=== PATIENT | female | born 1970 | race Caucasian/White ===

== ENCOUNTER 2017-03-11 15:35 | Emergency (ER) | payer BC, MEDICAID ==
--- NOTE | 2017-03-11 16:51 | RADIOLOGY REPORT (SQ) ---
EXAM DESCRIPTION: CHEST PA/LAT COMPLETED DATE/TIME: 03/11/2017 4:42 pm REASON FOR STUDY: 19, cough COMPARISON: Two-view chest 12/08/2013, 12/29/2012 EXAM PARAMETERS: NUMBER OF VIEWS: two views TECHNIQUE: Digital Frontal and Lateral radiographic views of the chest acquired. RADIATION DOSE: NA LIMITATIONS: none FINDINGS: LUNGS AND PLEURA: No opacities, masses or pneumothorax. No pleural effusion. MEDIASTINUM AND HILAR STRUCTURES: No masses or contour abnormalities. HEART AND VASCULAR STRUCTURES: Heart normal size. No evidence for failure. BONES: No acute findings. HARDWARE: None in the chest. OTHER: No other significant finding. IMPRESSION: NO SIGNIFICANT RADIOGRAPHIC FINDING IN THE CHEST. TECHNICAL DOCUMENTATION: JOB ID: [id number] [employer]- All Rights Reserved
[2017-03-11] MEDS ORDERED: ASPIRIN 81 MG TABLET, CHEWABLE PO ONE (17:02)
[2017-03-11 17:07] LABS: ABSOLUTE BASOPHILS # (AUTO) 0.1 10^3/uL (0.0-0.2); ABSOLUTE EOSINOPHILS # (AUTO) 0.2 10^3/uL (0.0-0.6); ABSOLUTE LYMPHOCYTES (AUTO) 2.3 10^3/uL (0.5-4.7); ABSOLUTE MONOCYTES (AUTO) 0.7 10^3/uL (0.1-1.4); ABSOLUTE NEUT (AUTO) 4.6 10^3/uL (1.7-8.2); EOSINOPHILS % (AUTO) 1.9 % (0-6); HEMATOCRIT 43.8 % (36.0-47.0); HGB HCT DIFFERENCE 1.2; MEAN CORPUSCULAR HEMOGLOBIN 30.8 pg (27.0-33.4); MEAN CORPUSCULAR HGB CONC 34.2 g/dL (32.0-36.0); MEAN CORPUSCULAR VOLUME 90 fl (80-97); MONOCYTES % (AUTO) 8.6 % (3-13); RED BLOOD COUNT 4.86 10^6/uL (3.72-5.28); RED CELL DISTRIBUTION WIDTH 13.1 % (11.5-14.0); SEGMENTED NEUTROPHILS % (AUTO) 58.5 % (42-78); WHITE BLOOD COUNT 7.8 10^3/uL (4.0-10.5)
--- NOTE | 2017-03-11 17:09 | ER Document Report ---
ED Cardiac - General Chief Complaint: Shortness Of Breath Stated Complaint: HEADACHE,CHEST PRESSURE Time Seen by Provider: 03/11/17 16:27 Information source: Patient Notes: 36-year-old female that presents today stating for the last week she has felt just a little "hazy", and being "weak all over". She states she believes these are secondary to small "blood pressure attacks" that she receives. She states that she has had these for an extended period of time. She states last night she had a "2 second" episode of some chest discomfort to the left anterior chest. She states she had a similar to second episode this morning. The last episode of any chest discomfort was early this morning. She states she has had some intermittent nausea over the last few days. She denies any fevers, vomiting, or cough. She denies any calf pain or leg swelling. She denies any shortness of breath, trips or travel. Patient does state she has a mild frontal headache. She denies any discrete weakness unilaterally to one side or the other. She denies any head trauma, neck pain, or blurry vision. States she has been taking her medications appropriately for blood pressure. Patient does state that she is self tapering her citalopram, tramadol, and gabapentin secondary to her losing her health insurance in the next few weeks. TRAVEL OUTSIDE OF THE [place] IN LAST 30 DAYS: No - HPI Patient complains to provider of: Chest pain Was the onset of pain: Sudden Is the pain a: New problem Chest pain location: Substernal Quality of pain: Other - See above Severity now: None Severity at worst: Mild Pain level currently: 2 Cardiac risk factors: Hypertension, Smoker, + Family history Positive cardiac history: No Associated symptoms: Other - See above Exacerbated by: Denies Relieved by: Nothing Similar symptoms previously: Yes Recently seen / treated by doctor: Yes - Related Data Allergies/Adverse Reactions: Penicillins Allergy (Verified 03/11/17 15:37) Past Medical History - General Information source: Patient - Social History Smoking Status: Unknown if Ever Smoked Cigarette use (# per day): No Chew tobacco use (# tins/day): No Smoking Education Provided: No Family History: Other - Dad with pacemaker in his 50's. - Past Medical History Cardiac Medical History: Reports: Hx Hypercholesterolemia, Hx Hypertension Psychiatric Medical History: Reports: Hx Depression - Immunizations Hx Diphtheria, Pertussis, Tetanus Vaccination: Yes Review of Systems - Review of Systems Constitutional: denies: Fever EENT: denies: Eye discharge, Nose congestion, Nose discharge Cardiovascular: Lightheaded. denies: Palpitations, Heart racing, Edema Respiratory: denies: Short of breath Gastrointestinal: denies: Abdominal pain, Vomiting Genitourinary: denies: Dysuria Musculoskeletal: denies: Leg swelling Skin: Other - no hives. denies: Rash Neurological/Psychological: Other - no slurred speech -: Yes All other systems reviewed and negative Physical Exam - Vital signs Vitals: Temp Pulse Resp BP Pulse Ox 99.1 F 86 20 149/100 H 97 03/11/17 15:41 03/11/17 15:41 03/11/17 15:41 03/11/17 15:41 03/11/17 15:41 Notes: Reviewed vital signs and nursing note as charted by RN. CONSTITUTIONAL: Alert and oriented and responds appropriately to questions. Well -appearing; well-nourished HEAD: Normocephalic; atraumatic EYES: PERRL; full extraocular range of motion ENT: Normal nose; no rhinorrhea; moist mucous membranes; pharynx without lesions noted NECK: Supple without meningismus; no carotid bruits; non-tender; no cervical lymphadenopathy, no masses CARD: Regular rate and rhythm; no murmurs, no clicks, no rubs, no gallops; symmetric distal pulses RESP: Normal chest excursion without splinting or tachypnea; breath sounds clear and equal bilaterally ABD/GI: Normal bowel sounds; non-distended; soft, non-tender BACK: The back appears normal and is non-tender to palpation EXT: Normal ROM in all joints; non-tender to palpation, no edema SKIN: No acute lesions noted NEURO: CN II through XII are intact. Patient has 5 out of 5 bilateral upper and lower extremity strength with sensation intact to light touch PSYCH: The patient's mood and manner are appropriate. Grooming and personal hygiene are appropriate. Course - Re-evaluation Re-evalutation: 03/11/17 17:09 EKG shows a heart rate of 80, normal sinus rhythm, minimally incomplete right bundle branch block with possibly left anterior fascicular block. No obvious ST elevation, depression, or flattening. Old EKG from 2014 has been compared showing no appreciable change. Given the above history and physical examination, heart rate in the 70s, 100% room air oxygenation, no recent trips or travel, no calf pain or leg swelling, no radiation to the back, pain lasting 2 seconds, I do believe ACS, PE, and dissection to be unlikely. We will obtain a full cardiac evaluation including a troponin, EKG, and an x-ray of the chest. I will provide the appropriate dose of aspirin. Given that the patient's last 2 second episode of chest discomfort was early this morning, I do not believe that the patient requires repeat serial markers. The patient's EKG as recorded is unchanged from 2014. Patient has a mild frontal headache with no focal neurological deficits. Initial diastolic blood pressure was elevated. Patient has taken her blood pressure medications. Patient has no pain behind her eyes or blurry vision. I do believe subarachnoid hemorrhage, space-occupying mass, temporal arteritis, or acute angle-closure glaucoma to be likely. 03/11/17 17:38 Chest x-ray shows normal heart, no increased lung markings on x-ray suggesting failure, normal mediastinum, no fractures, normal lung galo, no pneumothorax. 03/11/17 17:54 Patient's troponin as recorded. Patient still denies any pain to her chest. Repeat blood pressure is 140/90. Patient states 1 out of 10 frontal headache. Patient states she has easy access to her primary care physician. I will provide the discharge portrait artist. Strict return precautions have been explained. - Vital Signs Vital signs: Temp Pulse Resp BP Pulse Ox 99.1 F 86 11 L 144/100 H 99 03/11/17 15:41 03/11/17 15:41 03/11/17 17:26 03/11/17 17:26 03/11/17 17:26 - Laboratory Result Diagrams: 03/11/17 16:54 03/11/17 16:54 Discharge - Discharge Clinical Impression: Chest discomfort, Weakness generalized High blood pressure Qualifiers: Hypertension type: unspecified Qualified Code(s): I10 - Essential (primary) hypertension Condition: Good Disposition: HOME, SELF-CARE Additional Instructions: Come back immediately with any return of pain, any change in location of pain, any one-sided weakness, fevers, vomiting, leg swelling, or any other acute problems. Please follow-up with your primary care physician as well as possibly the portrait artist that we have referred you to. Referrals: KATHERINE LAZAR MD [EMERITUS] - Follow up as needed
[2017-03-11 17:25] LABS: ANION GAP 12 (5-19); BLOOD UREA NITROGEN 8 mg/dL (7-20); CALCIUM 9.5 mg/dL (8.4-10.2); CARBON DIOXIDE 27 mmol/L (22-30); CHLORIDE 104 mmol/L (98-107); CREATININE RESULT 0.78 mg/dL (0.52-1.25); GLUCOSE 91 mg/dL (75-110); SODIUM 143.2 mmol/L (137-145)
[2017-03-11 17:30] LABS: POTASSIUM 4.5 mmol/L (3.6-5.0)
[2017-03-11 18:00] VITALS: BP 140/89
--- NOTE | 2017-03-11 18:52 | EKG REPORT ---
SEVERITY:- ABNORMAL ECG - SINUS RHYTHM INCOMPLETE RBBB AND LAFB LOW VOLTAGE THROUGHOUT CONSIDER ANTERIOR INFARCT : Confirmed by: Torres Kohli MD 11-Mar-2017 18:50:50
== END 2017-03-11 18:09 | disposition home or self-care (01) ==
LOC: ER 15:35
DX: R07.9 Chest pain, unspecified (principal); R53.1 Weakness; I10 Essential (primary) hypertension; R06.02 Shortness of breath; R51 Headache
CPT/HCPCS: 36415; 71020; 80048; 84484; 85025; 93005; 93010; 99285

== ENCOUNTER 2018-09-16 10:47 | Emergency (ER) | payer SELFPAY ==
--- NOTE | 2018-09-16 11:32 | ER Document Report ---
ED Medical Screen (RME) - General Chief Complaint: Abdominal Pain Stated Complaint: COUGH Time Seen by Provider: 09/16/18 11:29 Notes: Patient is a 47-year-old female presents to the emergency department with multiple complaints. States she has had a generalized cough and congestion for 3 weeks. States subjective fevers. States she is also got left lower abdominal pain radiating up to her left upper side. States she had this pain for a couple of months. States that last week the pain has "changed and gotten worse." Patient's denying any dysuria. States she is nauseated, has vomited once, has also had multiple episodes of diarrhea. GENERAL: Alert, interacts well. No acute distress. ABDOMEN: Soft, generalized left lower abdominal pain, left upper abdominal pain. Non-distended. Bowel sounds present in all 4 quadrants. Lungs: Clear bilateral apices, slightly diminished bases. I have greeted and performed a rapid initial assessment of this patient. A comprehensive ED assessment and evaluation of the patient, analysis of test results and completion of the medical decision making process will be conducted by additional ED providers. This medical record was dictated with voice recognizing software. There may be grammatical, syntax errors that are unintended. TRAVEL OUTSIDE OF THE [place] IN LAST 30 DAYS: No - Related Data Allergies/Adverse Reactions: Penicillins Allergy (Verified 09/16/18 10:48) Past Medical History - Past Medical History Cardiac Medical History: Reports: Hx Hypercholesterolemia, Hx Hypertension Renal/ Medical History: Denies: Hx Peritoneal Dialysis Psychiatric Medical History: Reports: Hx Depression - Immunizations Hx Diphtheria, Pertussis, Tetanus Vaccination: Yes Physical Exam - Vital signs Vitals: Temp Pulse Resp BP Pulse Ox 98.2 F 74 16 155/110 H 94 09/16/18 10:51 09/16/18 10:51 09/16/18 10:51 09/16/18 10:51 09/16/18 10:51 Course - Vital Signs Vital signs: Temp Pulse Resp BP Pulse Ox 98.2 F 74 16 155/110 H 94 09/16/18 10:51 09/16/18 10:51 09/16/18 10:51 09/16/18 10:51 09/16/18 10:51
--- NOTE | 2018-09-16 11:50 | RADIOLOGY REPORT (SQ) ---
EXAM DESCRIPTION: CHEST 2 VIEWS COMPLETED DATE/TIME: 09/16/2018 11:41 am REASON FOR STUDY: SOB COMPARISON: 03/11/2017. EXAM PARAMETERS: NUMBER OF VIEWS: two views TECHNIQUE: Digital Frontal and Lateral radiographic views of the chest acquired. RADIATION DOSE: NA LIMITATIONS: none FINDINGS: LUNGS AND PLEURA: No opacities, masses or pneumothorax. No pleural effusion. MEDIASTINUM AND HILAR STRUCTURES: No masses or contour abnormalities. HEART AND VASCULAR STRUCTURES: Heart normal size. No evidence for failure. BONES: No acute findings. HARDWARE: None in the chest. OTHER: No other significant finding. IMPRESSION: NO ACUTE RADIOGRAPHIC FINDING IN THE CHEST. TECHNICAL DOCUMENTATION: JOB ID: [id number] [employer]- All Rights Reserved Reading location - IP/workstation name: [email or web address]
[2018-09-16 12:13] LABS: ABSOLUTE BASOPHILS # (AUTO) 0.1 10^3/uL (0.0-0.2); ABSOLUTE EOSINOPHILS # (AUTO) 0.1 10^3/uL (0.0-0.6); ABSOLUTE LYMPHOCYTES (AUTO) 2.1 10^3/uL (0.5-4.7); ABSOLUTE MONOCYTES (AUTO) 0.6 10^3/uL (0.1-1.4); ABSOLUTE NEUT (AUTO) 4.6 10^3/uL (1.7-8.2); BASOPHILS % (AUTO) 0.8 % (0-2); EOSINOPHILS % (AUTO) 1.8 % (0-6); HEMOGLOBIN 14.7 g/dL (12.0-15.5); LYMPHOCYTES % (AUTO) 28.5 % (13-45); MEAN CORPUSCULAR HEMOGLOBIN 30.7 pg (27.0-33.4); MEAN CORPUSCULAR HGB CONC 34.3 g/dL (32.0-36.0); MEAN CORPUSCULAR VOLUME 90 fl (80-97); MONOCYTES % (AUTO) 7.9 % (3-13); PLATELET COUNT 248 10^3/uL (150-450); RED CELL DISTRIBUTION WIDTH 13.5 % (11.5-14.0); TOTAL CELLS COUNTED % (AUTO) 100 %; WHITE BLOOD COUNT 7.5 10^3/uL (4.0-10.5)
[2018-09-16 12:14] LABS: APPEARANCE,URINE CLEAR; BILIRUBIN,URINE NEGATIVE (NEGATIVE); COLOR,URINE STRAW; GLUCOSE, URINE NEGATIVE (NEGATIVE); KETONES,URINE NEGATIVE (NEGATIVE); LEUKOCYTE ESTERASE,URINE NEGATIVE (NEGATIVE); NITRITE,URINE NEGATIVE (NEGATIVE); PROTEIN,URINE NEGATIVE (NEGATIVE); URINE SPECIFIC GRAVITY 1.006; UROBILINOGEN,URINE NEGATIVE mg/dL (<2.0)
[2018-09-16 12:26] LABS: ALANINE AMINOTRANSFERASE 21 U/L (9-52); ALBUMIN 4.2 g/dL (3.5-5.0); ALKALINE PHOSPHATASE 65 U/L (38-126); ANION GAP 9 (5-19); ASPARTATE AMINO TRANSFERASE 22 U/L (14-36); BILIRUBIN,DIRECT 0.3 mg/dL (0.0-0.4); BILIRUBIN,TOTAL 0.3 mg/dL (0.2-1.3); BLOOD UREA NITROGEN 15 mg/dL (7-20); CALCIUM 9.6 mg/dL (8.4-10.2); CARBON DIOXIDE 27 mmol/L (22-30); CHLORIDE 105 mmol/L (98-107); GLUCOSE 95 mg/dL (75-110); POTASSIUM 4.7 mmol/L (3.6-5.0); SODIUM 141.3 mmol/L (137-145); TOTAL PROTEIN 7.1 g/dL (6.3-8.2)
[2018-09-16] MEDS ORDERED: PREDNISONE 20 MG TABLET PO ONE (14:29)
[2018-09-16] MEDS ORDERED: IPRATROPIUM/ALBUTEROL 0.5-2.5 MG/3 ML AMPUL NEB ONE (14:29)
[2018-09-16] MEDS ORDERED: BENZONATATE 100 MG CAPSULE PO ONE (14:31)
--- NOTE | 2018-09-16 14:39 | ER Document Report ---
ED General - General Chief Complaint: Abdominal Pain Stated Complaint: COUGH Time Seen by Provider: 09/16/18 11:29 Mode of Arrival: Ambulatory Information source: Patient TRAVEL OUTSIDE OF THE [place] IN LAST 30 DAYS: No - HPI Patient complains to provider of: Persistent cough, shortness of breath, dizzy, nausea, diarrhea Onset: Other - Approximate 3-week duration Onset/Duration: Sudden Quality of pain: Cramping Severity: Severe Pain Level: 4 Associated symptoms: Nonproductive cough, Diarrhea, Nausea, Vomiting. denies: Chills, Fever Exacerbated by: Coughing, Deep breathing Relieved by: Denies Similar symptoms previously: No Recently seen / treated by doctor: No Notes: 47-year-old female coming in today with intractable cough and shortness of breath. States she gets an episode like this every year and is up having to be on inhalers and steroids. Also having some left-sided abdominal pain that radiates into her left upper quadrant. She said reported nausea diarrhea and dizziness. - Related Data Allergies/Adverse Reactions: Penicillins Allergy (Verified 09/16/18 10:48) Past Medical History - General Information source: Patient - Social History Smoking Status: Current Every Day Smoker Family History: Reviewed & Not Pertinent, Other - Dad with pacemaker in his 50's. Patient has suicidal ideation: No Patient has homicidal ideation: No - Past Medical History Cardiac Medical History: Reports: Hx Hypercholesterolemia, Hx Hypertension Pulmonary Medical History: Reports: Hx Asthma - seasonal Neurological Medical History: Reports: Hx Migraine Renal/ Medical History: Denies: Hx Peritoneal Dialysis Psychiatric Medical History: Reports: Hx Depression Past Surgical History: Reports: Hx Section, Hx Hysterectomy, Hx Oral Surgery, Hx Tubal Ligation - Immunizations Hx Diphtheria, Pertussis, Tetanus Vaccination: Yes Review of Systems - Review of Systems Notes: Constitutional: No fevers. No chills. Positive for malaise EENT: No eye redness. No eye pain. No ear pain. No sore throat. Cardiovascular: Positive pleuritic chest pain. No palpitations Respiratory: Positive cough, positive shortness of breath, negative respiratory distress Gastrointestinal: Positive for abdominal pain, nausea, and diarrhea. Negative for vomiting Genitourinary: Atraumatic. No lesions. No pain. No discharge. Musculoskeletal: Atraumatic. No swelling. No deformities. Skin: No rash or lesions. Lymphatic: No swollen lymph nodes. Neurologic: No headache. No syncope. Psychiatric: No suicidal or homicidal ideation. Physical Exam - Vital signs Vitals: Temp Pulse Resp BP Pulse Ox 98.2 F 74 16 155/110 H 94 09/16/18 10:51 09/16/18 10:51 09/16/18 10:51 09/16/18 10:51 09/16/18 10:51 - Notes Notes: General: Well-developed, well-nourished. In no acute distress. Non-toxic appearing. Cardiac: Well-perfused. Regular rate and rhythm. No murmurs, rubs, or gallops. Pulmonary: Diminished breath sounds with bronchitic cough. No retractions. No distress Abdominal exam :tenderness to palpation of the left mid abdomen and left upper quadrant. HEENT: Head is atraumatic. Conjunctivae not reddened. No tearing. PERRL. EOMI. Orbits atraumatic. No periorbital swelling or erythema. Oropharynx is without erythema, swelling, or exudates. Neck: Supple. No adenopathy. No meningismus. Dermatologic: Warm with good turgor. No rash. Atraumatic. Chest: Atraumatic. No chest wall tenderness to palpation. Musculoskeletal: Moves all extremities well. No range of motion deficits. no muscular or joint tenderness. No paraspinal muscle tenderness. no midline spinal tenderness or step-off. Genitourinary: Examination deferred Neurologic: No gross neurologic deficits. Psychiatric: Normal mood. Course - Re-evaluation Re-evalutation: 09/16/18 15:13 Work-up is negative. Chest x-ray negative. CT negative. She does have hematuria which I do not have an explanation for. We will treat her for upper respiratory infection and have her follow-up with her primary care doctor for the hematuria. - Vital Signs Vital signs: Temp Pulse Resp BP Pulse Ox 98.3 F 68 16 145/86 H 96 09/16/18 14:17 09/16/18 14:17 09/16/18 14:17 09/16/18 14:17 09/16/18 14:17 - Laboratory Result Diagrams: 09/16/18 11:50 09/16/18 11:50 Laboratory results interpreted by me: 09/16/18 11:50 Urine Blood MODERATE H - EKG Interpretation by [place] EKG shows normal: Sinus rhythm, [place], Intervals, QRS Complexes, ST-T Waves Discharge - Discharge Clinical Impression: Bronchospasm, Tobacco abuse Upper respiratory infection Qualifiers: URI type: unspecified URI Qualified Code(s): J06.9 - Acute upper respiratory infection, unspecified Hematuria Qualifiers: Hematuria type: unspecified type Qualified Code(s): R31.9 - Hematuria, unspecified Disposition: HOME, SELF-CARE Instructions: Abdominal Pain ([facility]), Upper Respiratory Illness ([facility]), Hematuria ([facility]) Additional Instructions: Please see your primary care doctor about the hematuria. Prescriptions: Benzonatate [Tessalon Perle 100 mg Capsule] 100 mg PO Q8HP PRN 7 Days #21 cap PRN Reason: Albuterol Sulfate [Proair HFA Inhalation Aerosol 8.5 gm MDI] 2 puff IH Q4H PRN #1 mdi PRN Reason: Azithromycin [Zithromax 250 mg Tablet] 250 mg PO ASDIR PRN #6 tablet PRN Reason: Prednisone [Deltasone 20 mg Tablet] 3 tab PO DAILY 5 Days #15 tablet Forms: Smoking Cessation Education, Elevated Blood Pressure
--- NOTE | 2018-09-16 14:58 | RADIOLOGY REPORT (SQ) ---
EXAM DESCRIPTION: CT ABD/PELVIS NO ORAL OR IV COMPLETED DATE/TIME: 09/16/2018 2:47 pm REASON FOR STUDY: hematuria, left sided abd pain COMPARISON: None. TECHNIQUE: CT scan of the abdomen and pelvis performed without intravenous or oral contrast. Images reviewed with lung, soft tissue, and bone windows. Reconstructed coronal and sagittal MPR images revi ewed. All images stored on PACS. All CT scanners at this facility use dose modulation, iterative reconstruction, and/or weight based d osing when appropriate to reduce radiation dose to as low as reasonably achievable (ALARA). [facility]: Dose Right [facility]: CareDose [facility]: Dose Right [facility]: Teradose 4D [facility]: [employer] RADIATION DOSE: CT Rad equipment meets quality standard of care and radiation dose reduction techniq ues were employed. CTDIvol: 16.5 mGy. DLP: 897 mGy-cm.mGy. LIMITATIONS: None. FINDINGS: LOWER CHEST: No significant findings. No nodules or infiltrates. NON-CONTRASTED LIVER, SPLEEN, ADRENALS: Evaluation limited by lack of IV contrast. No identified sign ificant masses. PANCREAS: No masses. No peripancreatic inflammatory changes. GALLBLADDER: No identified stones by CT criteria. No inflammatory changes to suggest cholecystitis. RIGHT KIDNEY AND URETER: No suspicious masses. Assessment limited by lack of IV contrast. No signif icant calcifications. No hydronephrosis or hydroureter. LEFT KIDNEY AND URETER: No suspicious masses. Assessment limited by lack of IV contrast. No signifi cant calcifications. No hydronephrosis or hydroureter. AORTA AND RETROPERITONEUM: No aneurysm. No retroperitoneal masses or adenopathy. BOWEL AND PERITONEAL CAVITY: No obvious masses or inflammatory changes. No free fluid. APPENDIX: Surgically absent. PELVIS, BLADDER, AND ABDOMINAL WALL:No abnormal masses. No free fluid. Bladder normal. BONES: No significant findings. OTHER: No other significant finding. IMPRESSION: NO SIGNIFICANT OR ACUTE PROCESS IN THE ABDOMEN OR PELVIS. COMMENT: Quality ID # [id number]: Final reports with documentation of one or more dose reduction techniques (e.g., Automated exposure control, adjustment of the mA and/or kV according to patient size, use of iterative reconstruction technique) TECHNICAL DOCUMENTATION: JOB ID: [id number] [employer]- All Rights Reserved Reading location - IP/workstation name: [email or web address]
[2018-09-16 15:46] VITALS: BP 129/84
--- NOTE | 2018-09-16 22:15 | EKG REPORT ---
SEVERITY:- BORDERLINE ECG - SINUS RHYTHM LOW VOLTAGE THROUGHOUT : Confirmed by: Torres Kohli MD 16-Sep-2018 22:14:46
== END 2018-09-16 15:53 | disposition home or self-care (01) ==
LOC: ER 10:47
DX: J06.9 Acute upper respiratory infection, unspecified (principal); J98.01 Acute bronchospasm; R31.9 Hematuria, unspecified; R10.12 Left upper quadrant pain; R05 Cough; R06.02 Shortness of breath; R19.7 Diarrhea, unspecified; R42 Dizziness and giddiness; Z88.0 Allergy status to penicillin; F17.200 Nicotine dependence, unspecified, uncomplicated; I10 Essential (primary) hypertension; E78.00 Pure hypercholesterolemia, unspecified; F32.9 Major depressive disorder, single episode, unspecified; Z90.710 Acquired absence of both cervix and uterus
CPT/HCPCS: 93005; 94640; 99284; 36415; 87086; 83690; 85025; 80053; 81001; 84484; 71046; 74176; 93010; J7512; J7620